=== PATIENT | female | born 1985 | race Two or more races ===

== ENCOUNTER 2021-02-15 09:16 | Emergency (ER) | payer MEDICAID ==
[~2021-02-15] VITALS: Ht 154.9 cm; Wt 77.1 kg
[2021-02-15 09:50] VITALS: BP 129/88
--- NOTE | 2021-02-15 09:56 | NUR ---
ED Nurse Note: pt with c/o as per triage.
[2021-02-15] MEDS ORDERED: CEPHALEXIN500 MG ORAL (09:58)
[2021-02-15] MEDS ORDERED: Lidocaine 1% Plain 30 ml INJ ONE ×2 (10:00)
--- NOTE | 2021-02-15 10:17 | Emergency Room Report ---
History of Present Illness General Chief Complaint: Skin Rash/Abscess Source: Patient Present Illness HPI Disclaimer: Please note that this report is being documented using [employer]AG[employer] technology. This can lead to erroneous entry secondary to incorrect interpretation by the dictating instrument. HPI: 35-year-old female presents with skin lesion on her labia. She states over the past 5 days she has had a growing "pimple" over the left labia. Tender to touch. No bleeding. No purulence. She reports noticing a portillo develop over it over the past few days. Prior history of cysts and abscesses. Denies fever or chills. Reports the skin around the area is tender and swollen. Denies vaginal bleeding or vaginal discharge. Denies dysuria hematuria. Denies rectal bleeding rectal pain or discharge. 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 EOMI. Resp: Normal work of breathing Skin: There is a 2 x 2 centimeter raised fluctuant tender pustule over the left labia majora. Surrounding erythema and edema noted MSK: Normal tone and bulk. Moving all extremities. No obvious deformity. Neuro: Awake and alert. Mentating appropriately Procedures Incision and Drainage Incision and Drainage : Consent: Verbal Site: Left labia Blade Size: 11 I & D Procedure: betadine prep Wound Location: pelvis Wound's Depth, Shape: superficial, linear Wound Length (cm): 1 Wound Explored: clean Anesthesia: 1% Lidocaine Volume Anesthetic (ccs): 10 Splint Applied?: Yes Patient Tolerated: Well Complications: None Medical Decision Making Diagnostic Impression: Primary Impression: Abscess ER Course 35-year-old female presents with abscess to the left labia. Incision and drainage performed at bedside by me with expression of significant purulent material. Tolerated the procedure well with no complications. There is surrounding cellulitis and patient will start antibiotics. I recommended prompt AUDIT OFFICER follow-up and patient will return to emergency department if she fails to improve on antibiotics over the next few days. She understands and agrees with the treatment plan will be discharged home. Last Vital Signs Date Time Temp Pulse Resp B/P (MAP) Pulse Ox O2 Delivery O2 Flow Rate FiO2 02/15/21 09:50 98.8 69 18 129/88 99 Room Air Disposition: HOME, SELF-CARE Condition: Stable Scripts Cephalexin* (KEFLEX*) 500 Mg Capsule 500 MG ORAL EVERY 6 HOURS for 7 Days, #28 CAP Prov: Gerard Holley MD 02/15/21 Referrals: [facility] Patient Instructions: Abscess Additional Instructions: Please follow-up with your primary care doctor in the next 1 to 3 days to discuss this emergency department visit and for reevaluation. If you have any new or worsening symptoms please return to the emergency department for reevaluation. Please note that this report is being documented using [employer] technology. This can lead to erroneous entry secondary to incorrect interpretation by the dictating instrument. Gerard Holley MD Feb 15, 2021 10:17
--- NOTE | 2021-02-15 10:41 | NUR ---
ED Nurse Note: Pt cleared by health care Provider for discharge. DC instructions/prescription was given and explained to pt and verbalized understanding of teachings. All medical devices such as ID band removed. Pt is AAO x4, ambulatory and left with all personal belongings.
== END 2021-02-15 10:54 | disposition home or self-care (01) ==
LOC: EMR 10:10
DX: N76.4 Abscess of vulva (principal)
CPT/HCPCS: 10060; J2001; Z7502; 99282